=== PATIENT | female | born 1960 | race Caucasian/White ===

== ENCOUNTER 2018-06-23 13:54 | Inpatient (IN) | payer MEDICARE, OTHER ==
[~2018-06-23] VITALS: Ht 160 cm; Wt 71.7 kg
[2018-06-23 13:54] VITALS: BP 140/78
[2018-06-23 14:31] LABS: ABSOLUTE BASOPHILS 0.1 thou/uL (0.0-0.2); ABSOLUTE LYMPHOCYTES 1.6 thou/uL (0.8-5.3); ABSOLUTE MONOCYTES 0.7 thou/uL (0.0-1.2); ABSOLUTE NEUTROPHILS 12.7 thou/uL (1.6-8.1); BASOPHILS 0.7 %; EOSINOPHILS 0.2 %; LYMPHOCYTES 10.6 %; MCH 27.1 pg (26.0-34.0); MCHC 32.5 g/dL (28.0-37.0); MCV 83.5 fL (80.0-100.0); MONOCYTES 4.6 %; NUCLEATED RBCS 0 /100WBC; PLATELET COUNT* 276 thou/uL (150-400); POLYS 83.9 %; RDW-CV 13.6 % (10.5-14.5); WBC 15.1 thou/uL (4.0-11.0)
[2018-06-23 14:38] LABS: PO2 86.1 mmHg (75.0-100.0)
[2018-06-23 14:39] LABS: pH 7.276 (7.340-7.450)
[2018-06-23 14:40] LABS: PROTIME 10.6 Seconds (9.20-11.50)
[2018-06-23 14:40] LABS: HCO3 64.2 mmol/L (22.0-26.0)
[2018-06-23 14:41] LABS: BUN 12 mg/dL (7-18); CALCIUM 8.8 mg/dL (8.5-10.1); CHLORIDE 78 mmol/L (98-107); CREATININE 0.5 mg/dL (0.6-1.3); GLUCOSE 136 mg/dL (70-99); POTASSIUM 3.8 mmol/L (3.5-5.1); SODIUM 124 mmol/L (136-145)
[2018-06-23 14:44] LABS: CO2 > 45 mmol/L (21-32)
[2018-06-23 14:52] LABS: ALBUMIN 3.6 g/dL (3.4-5.0); ALKALINE PHOSPHATASE 123 U/L (46-116); LIPASE 72 U/L (73-393); NT-PRO BRAIN NAT PEPTIDE 252 pg/mL (<300); SGOT 36 U/L (15-37); SGPT 52 U/L (30-65); TOTAL BILIRUBIN 0.6 mg/dL (<0.1-1.0); TOTAL PROTEIN 7.5 g/dL (6.4-8.2); TROPONIN-I LEVEL <0.06 ng/mL (<0.06)
[2018-06-23 16:55] LABS: BE 20.7 mmol/L (-2 to +3); PO2 80.8 mmHg (75.0-100.0)
[2018-06-23 16:59] LABS: HCO3 53.9 mmol/L (22.0-26.0)
--- NOTE | 2018-06-23 17:16 | EKG ---
[place] [address] ELECTROCARDIOGRAM REPORT Name: SRIKANTH VILLANUEVA Room: [facility]#: [id number] Admission: 06/23/18 Attend Phys: Discharge: Date of : 58 Report #: [id number] THIS REPORT FOR: //name// [facility] ED Test Date: 2018-06-23 Test Time: 14:00:23 Pat Name: SRIKANTH VILLANUEVA Department: Room: Gender: F [employer] [place]: Juliane GUTHRIE : 1960 Requested By: Tra Cruz Order Number: [id number] MD: Yosef Cruz Measurements Intervals Raymond Rate: 121 P: 98 WA: 152 QRS: 92 QRSD: 159 T: 86 QT: 331 QTc: 470 Interpretive Statements Sinus tachycardia Consider right atrial enlargement Artifact in lead(s) II,III,aVF,V1,V4,V5,V6 No previous ECG available for comparison Electronically Signed On 06-23-2018 17:16:30 CDT by Yosef Cruz [email or web address] <ELECTRONICALLY SIGNED> By: Yosef Cruz MD, [facility] 06/23/18 1716 1400 1400 Yosef Cruz MD, FACC /EPI
[2018-06-23] MEDS ORDERED: BROVANA15 MCG/2 M INH (19:02)
[2018-06-23 22:00] VITALS: BP 140/78
[2018-06-23 23:00] VITALS: BP 142/62
[2018-06-23 23:30] VITALS: BP 131/56
[2018-06-24] VITALS (15 sets, daily range): BP systolic 106–164; BP diastolic 50–77
[2018-06-24 06:23] LABS: BE 19.3 mmol/L (-2 to +3); pH 7.322 (7.340-7.450)
[2018-06-24 06:27] LABS: HCO3 51.5 mmol/L (22.0-26.0); PCO2 101.7 mmHg (35.0-45.0); PO2 147.6 mmHg (75.0-100.0)
[2018-06-24 15:09] LABS: BE 24.3 mmol/L (-2 to +3); PO2 60.2 mmHg (75.0-100.0); pH 7.377 (7.340-7.450)
[2018-06-24 15:10] LABS: HCO3 55.2 mmol/L (22.0-26.0); PCO2 96.2 mmHg (35.0-45.0)
[2018-06-25] VITALS (8 sets, daily range): BP systolic 103–152; BP diastolic 63–94
--- NOTE | 2018-06-25 07:39 | CON ---
[address] [address] CONSULTATION Name: SRIKANTH VILLANUEVA Room: [address] IN .R.#: [id number] Admission: 06/23/18 Attend Phys: Juan Pinto Discharge: Date of : 58 Report #: [id number] THIS REPORT FOR: //name// CC: Kadeem Sam REQUESTING PHYSICIAN: Placido Sam DO REASON FOR CONSULTATION: Respiratory failure, severe COPD. DISCUSSION: The patient is a 57-year-old woman who has a history of severe end-stage chronic obstructive pulmonary disease. History of ongoing tobacco abuse as well. She has not been to this facility previously. She was brought to the emergency department yesterday with worsening shortness of breath, as well as some confusion. According to her , she does have end-stage COPD. Has seen physicians in the past. Her lung function was reportedly extremely low. She is on oxygen at home. She is essentially homebound and gets around the house even in a wheelchair with assistance. She has never been intubated or been on BiPAP in the past since she has opted not to really pursue much in the way of any treatment. They do check her O2 saturations at home. She is at baseline on about 4 L, so they will adjust and keep her saturations around 94%. Her had become ill with a cold and she began having some of those issues. She is not aware of any fevers at home. She does do Brovana twice a day in her nebulizer. Denies using any other medication in nebulizer. However, when she was having more shortness of breath, she actually increased number of treatments she was doing. Her believes she may have been up to 4 a day. She does have a Ventolin inhaler at home. Note, she has not been using any other nebulizer medications, as she did feel like it offered her significant benefit in the past. She has not been on any steroids in some time. Apparently had had mouth sores from that though not thrush. When she was seen in the emergency department, was noted to be markedly hypercapnic. Her pCO2 was 141. BiPAP was started. Followup gases yesterday did show some improvement and this morning was down to 102, but while on the BiPAP. Has been confused at times, very restless. She did receive some low dose lorazepam, which has helped. The patient is really unable to provide any history. It was really obtained from her . As noted, she has very severe COPD. 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 It has also been a while since she has seen her primary care physician due to the difficulty of getting out of the house. Reportedly, they had been told years ago that she had very limited life expectancy. PAST MEDICAL HISTORY: Besides the severe COPD, remarkable for hypertension. Had rheumatic fever as a child. Apparently, she has some type of valvular issue though she has declined any additional evaluation for years. Was told in the [address] [address] CONSULTATION Name: SRIKANTH VILLANUEVA Room: [address] IN [facility]#: [id number] Admission: 06/23/18 Attend Phys: Juan Pinto Discharge: Date of : 58 Report #: [id number] past to take antibiotics when she had dental work done. SOCIAL HISTORY: She has essentially been disabled and the homebound for years. Previously had worked for the [employer]. She is . Has two children. FAMILY HISTORY: Both of her children have asthma. Father of cancer. Had a sister with a traumatic brain injury. REVIEW OF SYSTEMS: Unable to obtain from the patient. Per her and son, the patient has not been eating well for the last couple of days. Complained of an acid stomach. No vomiting. They note normally, she does not have a big appetite and fills up quickly. Does tend to get anxious. She had developed some jerking movements of her arms, which was new. They check her sats at home and noted over the last several days, at times with movement, she would drop into the 60s. She uses a wheelchair to get around at home given her marked dyspnea. PHYSICAL EXAMINATION: GENERAL: The patient seen in the intensive care unit. Currently on the BiPAP, FiO2 of 50%. SpO2 is in the mid 90s. Heart rate is in the 90s. She is fairly cooperative with the exam. Really not able to participate in questioning. At times will start to pull off her blood pressure cuff. She looks chronically ill. Mildly obese. HEENT: Head is normocephalic. Sclerae nonicteric. Mouth was not examined given the BiPAP. NECK: Fairly large Supple without any definite adenopathy. No supraclavicular adenopathy. HEART: Mildly tachycardic. I do not appreciate a murmur, but tones are distant, has overlying lung sounds. LUNGS: Show breath sounds to be diminished, some scattered expiratory wheezes. Excursion is equal. ABDOMEN: Mildly obese, but soft. Does not appear to have any hepatosplenomegaly. EXTREMITIES: At lower extremities, does not appear to have any significant edema. SKIN: Turgor is fair. NEUROLOGIC: Will move all extremities spontaneously. She is following commands. LABORATORY AND X-RAY FINDINGS: Chest films were reviewed. Heart size appears normal. Has some minimal infiltrates in her bases on this morning's film versus atelectatic changes. Arterial blood gas done yesterday afternoon when first seen in the ED, her pH was 7.28, pCO2 of 141, pO2 of 86, bicarbonate of 64, carboxyhemoglobin 1.8. This morning, pH was 7.32, pCO2 of 102, pO2 of 148, bicarbonate of 51. That was on the BiPAP. On her chemistry, her sodium yesterday was 124, chloride 78, potassium 3.8, serum bicarbonate is greater than [facility] [address] [place] [address] CONSULTATION Name: SRIKANTH VILLANUEVA Room: [address] [place] [facility]#: [id number] Admission: 06/23/18 Attend Phys: Juan Pinto Discharge: Date of : 58 Report #: [id number] 45. BUN 12, creatinine 0.5. Alkaline phosphatase 123. ProBNP 252. White blood cell count 15,100, hemoglobin 13.0, hematocrit of 40, platelets 276,000. Blood cultures were sent. Those results are pending. IMPRESSION: 1. Acute respiratory failure, superimposed on chronic respiratory failure. Has very severe end-stage chronic obstructive pulmonary disease. Prognosis is extremely poor. Based on blood gases and chemistry, she has also been extremely hypercapnic for a period of time. It is extremely limited given her disease process. 2. Probable pneumonia. May have started with a viral infection, is now being covered with antibiotics. 3. Hyponatremia. 4. Tobacco abuse. 5. History of rheumatic fever. Questionable valvular process. However, the patient declined additional followup and evaluation in the past per . 6. Overall prognosis is extremely poor. She had not yet filled out any paperwork in regards to living will or an advanced directive. However, in talking with her and son, she apparently has expressed to them that she does not wish to be on a ventilator. We also discussed that, as well as gentle resuscitation. She is not to be intubated. We would also not attempt to resuscitate or an event of a cardiac arrest and would allow natural . RECOMMENDATIONS: 1. DNR/DNI as noted above. 2. We will continue her neb treatments, IV steroids, and antibiotics. 3. Follow up blood gases later this afternoon, as well as in the morning. 4. If she has further improvement, consider coming off BiPAP at least intermittently. 5. Continue with treating other symptoms with p.r.n. lorazepam. It does appear that has worked well for her. 6. If she does not make significant improvement or worsens, we will need to discuss with her family change in treatment goals and consider comfort care and/or hospice. <ELECTRONICALLY SIGNED> By: Stacey Chang MD 06/25/18 0739 0941 0001Stacey Chang MD /nt
[2018-06-25 09:07] LABS: BE 21.7 mmol/L (-2 to +3); PO2 73.8 mmHg (75.0-100.0); pH 7.401 (7.340-7.450)
[2018-06-25 09:11] LABS: PCO2 84.8 mmHg (35.0-45.0)
[2018-06-25 09:12] LABS: HCO3 51.5 mmol/L (22.0-26.0)
[2018-06-26 03:47] VITALS: BP 130/72
[2018-06-26 05:32] LABS: ABSOLUTE LYMPHOCYTES 2.3 thou/uL (0.8-5.3); ABSOLUTE MONOCYTES 1.2 thou/uL (0.0-1.2); ABSOLUTE NEUTROPHILS 9.6 thou/uL (1.6-8.1); BASOPHILS 0.1 %; EOSINOPHILS 0.3 %; HEMATOCRIT 40.8 % (37.0-47.0); HEMOGLOBIN 13.1 gm/dL (12.0-15.0); LYMPHOCYTES 17.6 %; MCH 27.1 pg (26.0-34.0); MCV 84.6 fL (80.0-100.0); MONOCYTES 8.8 %; MPV 8.6 fl. (7.2-11.1); NUCLEATED RBCS 0 /100WBC; PLATELET COUNT* 245 thou/uL (150-400); POLYS 73.2 %; RBC 4.82 mil/uL (4.20-5.00); RDW-CV 13.9 % (10.5-14.5); WBC 13.1 thou/uL (4.0-11.0)
[2018-06-26 06:02] LABS: ALBUMIN 3.3 g/dL (3.4-5.0); ALKALINE PHOSPHATASE 97 U/L (46-116); BUN 13 mg/dL (7-18); CALCIUM 9.4 mg/dL (8.5-10.1); CHLORIDE 87 mmol/L (98-107); CREATININE 0.5 mg/dL (0.6-1.3); GLUCOSE 79 mg/dL (70-99); POTASSIUM 3.6 mmol/L (3.5-5.1); SGOT 43 U/L (15-37); SGPT 41 U/L (30-65); SODIUM 135 mmol/L (136-145); TOTAL BILIRUBIN 0.4 mg/dL (<0.1-1.0); TOTAL PROTEIN 7.2 g/dL (6.4-8.2)
[2018-06-26 06:11] LABS: CO2 > 45 mmol/L (21-32)
[2018-06-26 08:00] VITALS: BP 142/72
[2018-06-26 13:27] VITALS: BP 144/74
[2018-06-26 13:42] LABS: BE 21.7 mmol/L (-2 to +3); PO2 68.7 mmHg (75.0-100.0); pH 7.422 (7.340-7.450)
[2018-06-26 13:44] LABS: PCO2 80.6 mmHg (35.0-45.0)
[2018-06-26 13:45] LABS: HCO3 51.3 mmol/L (22.0-26.0)
[2018-06-26 16:00] VITALS: BP 137/70
[2018-06-26 20:00] VITALS: BP 132/72
[2018-06-27 01:01] VITALS: BP 169/86
[2018-06-27 05:15] VITALS: BP 129/65
[2018-06-27 08:00] VITALS: BP 90/68
[2018-06-27 12:40] VITALS: BP 135/75
[2018-06-27 13:04] LABS: pH 7.457 (7.340-7.450)
[2018-06-27 13:05] LABS: BE 18.3 mmol/L (-2 to +3); HCO3 46.2 mmol/L (22.0-26.0); PCO2 66.9 mmHg (35.0-45.0); PO2 59.4 mmHg (75.0-100.0)
[2018-06-27 14:41] LABS: ALKALINE PHOSPHATASE 94 U/L (46-116); ANION GAP < 0 mmol/L (7-16); BUN 18 mg/dL (7-18); CALCIUM 8.7 mg/dL (8.5-10.1); CHLORIDE 90 mmol/L (98-107); CO2 44 mmol/L (21-32); CREATININE 0.6 mg/dL (0.6-1.3); GLUCOSE 310 mg/dL (70-99); POTASSIUM 3.9 mmol/L (3.5-5.1); SGOT 31 U/L (15-37); SGPT 48 U/L (30-65); SODIUM 132 mmol/L (136-145); TOTAL BILIRUBIN 0.3 mg/dL (<0.1-1.0); TOTAL PROTEIN 6.5 g/dL (6.4-8.2)
[2018-06-27 16:24] VITALS: BP 145/78
[2018-06-28] VITALS: BP 150/71
[2018-06-28 04:00] VITALS: BP 138/61
[2018-06-28 08:00] VITALS: BP 150/65
[2018-06-28 12:00] VITALS: BP 146/81
[2018-06-28 16:00] VITALS: BP 133/73
[2018-06-28 20:04] VITALS: BP 194/96
[2018-06-29] VITALS: BP 163/88
[2018-06-29 04:00] VITALS: BP 177/84
[2018-06-29 05:43] LABS: PCO2 48.9 mmHg (35.0-45.0)
[2018-06-29 11:48] VITALS: BP 140/82
[2018-06-29] MEDS ORDERED: DOXYCYCLINE 10100 MG PO (12:38)
[2018-06-29] MEDS ORDERED: PREDNISONE 20 M20 MG PO (12:42)
[2018-06-29 12:49] VITALS: BP 140/82
[2018-06-29] MEDS ORDERED: ALBUTEROL2.5 MG/31 INH (12:49)
[2018-06-29 13:54] VITALS: BP 140/82
== END 2018-06-29 16:20 | disposition home health service (06) | DRG 871 ==
LOC: M.ERS 13:54 → M.TBA-ER 17:42 → M.2W 17:42 → M.ICU 17:42 → M.2W 06-25 09:55
PROVIDERS: Emergency Medicine; Internal Medicine; Internal Medicine Pulmonary Disease; ADMIT Internal Medicine
PROC: 5A09357 Assistance with Respiratory Ventilation, Less than 24 Consecutive Hours, Continuous Positive Airway Pressure (ICD-10-PCS; principal; 2018-06-23)
PROC: 5A09357 Assistance with Respiratory Ventilation, Less than 24 Consecutive Hours, Continuous Positive Airway Pressure (ICD-10-PCS; 2018-06-24)
PROC: 5A09357 Assistance with Respiratory Ventilation, Less than 24 Consecutive Hours, Continuous Positive Airway Pressure (ICD-10-PCS; 2018-06-25)
PROC: 5A09357 Assistance with Respiratory Ventilation, Less than 24 Consecutive Hours, Continuous Positive Airway Pressure (ICD-10-PCS; 2018-06-26)
PROC: 5A09357 Assistance with Respiratory Ventilation, Less than 24 Consecutive Hours, Continuous Positive Airway Pressure (ICD-10-PCS; 2018-06-28)
DX: A41.9 Sepsis, unspecified organism (principal); J69.0 Pneumonitis due to inhalation of food and vomit; J96.21 Acute and chronic respiratory failure with hypoxia; G93.41 Metabolic encephalopathy; J96.22 Acute and chronic respiratory failure with hypercapnia; E87.1 Hypo-osmolality and hyponatremia; J44.1 Chronic obstructive pulmonary disease with (acute) exacerbation; I10 Essential (primary) hypertension; Z66 Do not resuscitate; B34.9 Viral infection, unspecified; J22 Unspecified acute lower respiratory infection; F17.210 Nicotine dependence, cigarettes, uncomplicated; Z82.5 Family history of asthma and other chronic lower respiratory diseases; Z84.89 Family history of other specified conditions; Z88.8 Allergy status to other drugs, medicaments and biological substances; Z79.899 Other long term (current) drug therapy